=== PATIENT | female | born 1960 | race Caucasian/White ===

== ENCOUNTER 2017-11-29 06:39 | Emergency (ER) | payer BC ==
[2017-11-29 06:51] VITALS: BP 120/76; PULSE 106; BMI 24.1
[2017-11-29 06:52] VITALS: TEMP 97.6
--- NOTE | 2017-11-29 07:31 | PDOC ---
History of Present Illness - General Chief Complaint: Headache Stated Complaint: HEAD PRESSURE - History of Present Illness Initial Comments: Ms Galivn is a 57yo healthy F who presents with a dull headache. Headache started about 2 days ago, located occipitally, non-radiating, pressure like, about 4/10, relieved with ibuprofen. Patient was worried because the headache woke her up this morning. She was sick last week and continues to have sinus congestion and rhinorrhea and developed a subsequent occipital headache. The pain is worse when she leans forward. She denies head trauma, sharp headache, WHOML. She has had migraines before, but this headache is unlike a migraine. Denies hearing or vision abnormalities or other focal neurological symptoms. Past History - Past Medical History Allergies/Adverse Reactions: Allergies Allergy/AdvReac Type Severity Reaction Status Date / Time No Known Drug Allergies Allergy Verified 11/29/17 06:48 No Known Drug Intolerances Allergy Verified 11/29/17 06:48 Home Medications: Ambulatory Orders Prednisone 20 mg PO BID #10 tablet 04/15/14 - Surgical History Appendectomy: Yes (1979) - Immunization History Immunization Up to Date: Yes - Suicide/Smoking/Psychosocial Hx Smoking History: Never smoked Have you smoked in the past 12 months: No Information on smoking cessation initiated: No Hx Alcohol Use: No Drug/Substance Use Hx: No Substance Use Type: Alcohol Hx Substance Use Treatment: No *Physical Exam - Vital Signs Last Vital Signs Temp Pulse Resp BP Pulse Ox 97.6 F 106 H 20 120/76 99 11/29/17 06:51 11/29/17 06:49 11/29/17 06:49 11/29/17 06:49 11/29/17 06:49 - Physical Exam Comments: GEN: AAOx3, NAD, Lying comfortably HEENT: PERRLA, EOMi, Mild TTP in maxillary sinuses CV: S1, S2, RRR LUNG: CTABL ABD: Soft, NT, ND, normoactive BS MSK: NO edema, no erythema NEURO: CN 2-12 grossly intact MSK 5/5 in all extremities No sensation deficits No disdiadokinesia or gait disturbances Medical Decision Making - Medical Decision Making 57yo healthy F w/ headache, likely sinus headache due to association w/ sinus congestion and rhinorrhea. Other ddx include migraine, tension, or cluster headache but these are less likely. --Ibuprofen 600mg Will encourage to take Ibuprofen and if needed decongestant such as Sudafed (pt has no hx of HTN). Dispo home. Return if symptoms worsen. *DC/Admit/Observation/Transfer Diagnosis at time of Disposition: Sinus headache - Discharge Dispostion Disposition: HOME Condition at time of disposition: Stable - Referrals Referrals: Radha Funez MD [Primary Care Provider] - 14 days - Patient Instructions Printed Discharge Instructions: DI for Sinus Headache - Post Discharge Activity
--- NOTE | 2017-11-29 07:33 | PDOC ---
Attending Attestation - Resident Resident Name: Huseyin Archer - ED Attending Attestation I have performed the following: I have examined & evaluated the patient, The case was reviewed & discussed with the resident, I agree w/resident's findings & plan, Exceptions are as noted - HPI HPI: 11/29/17 07:32 57y F presenting with intermittent pressure like headache since yesterday - pt notes headache is worse in the posterior head as well as in the frontal sinuses - it resolves with ibuptofen, is approx 4/10 at is worse. There is no associated vision changes, neck stiffiness, n/v, fever/chills, numbness/tingling /weakness. Pt endoreses recent episode of URI/flu like sypmtoms including nasal congestion , sore throat and low grade fever. Pt is a repschool teacher with sick contacts. Pt has no other pmhx on exam pt is well appearing, in no distress, with mild sinus tenderness to percussion. No signs of nuchal rigidity. normal neuro exam suspect sinus congestion/tension headache no signs of dangerous headahe such as meningitis/encephalitis, sah/ich will dc with ibuprofen and decongestant and PMD fu return precautions were discussed
[2017-11-29] MEDS: IBUPROFEN 200 MG TABLET PO ONE ×2 (08:12→08:32)
[2017-11-29] MEDS ORDERED: IBUPROFEN 600 MG TABLET (FP) PO ONE ×2 (08:17→08:18)
== END 2017-11-29 08:45 | disposition home or self-care (01) ==
LOC: JER 06:39
DX: J34.89 Other specified disorders of nose and nasal sinuses (principal); R51 Headache
CPT/HCPCS: 99282-25

== ENCOUNTER 2019-05-11 06:09 | Day surgery (SDC) | payer BC ==
[2019-05-10 09:00] VITALS: BMI 23.8
[2019-05-11] MEDS ORDERED: oxyCODONE HCL 5 MG TABLET PO PRN ×2 (07:23)
[2019-05-11] MEDS ORDERED: ONDANSETRON 4 MG/2 ML VIAL IVPUSH PRN (07:23)
[2019-05-11] MEDS ORDERED: LACTATED RINGERS SOLUTION 1,000 ML IV SCH (07:30)
[2019-05-11] MEDS ORDERED: LIDOCAINE 1%-EPI 1:100,000 30 ML MDV IJ ONE (07:45)
[2019-05-11] MEDS ORDERED: BUPIVACAINE HCL/PF 0.5% (5MG/ML) 10 ML VIAL ONE (07:45)
[2019-05-11 07:49] LABS: EPI CELLS 0.8 /HPF (0-5/HPF); HYALINE CASTS 2 /lpf (0-8); PH,URINE 5.5 (5.0-8.0); URINE APPEARANCE CLEAR; URINE BILIRUBIN NEGATIVE (NEGATIVE); URINE COLOR YELLOW; URINE GLUCOSE (UA) NEGATIVE (NEGATIVE); URINE KETONE NEGATIVE (NEGATIVE); URINE LEUK ESTERASE TRACE (NEGATIVE); URINE NITRITE NEGATIVE (NEGATIVE); URINE PROTEIN NEGATIVE (NEGATIVE); URINE RBC 1 /hpf (0-4); URINE UROBILINOGEN 0.2 mg/dL (0.2-1.0); URINE WBC 2 /hpf (0-5)
[2019-05-11] MEDS ORDERED: ONDANSETRON 4 MG/2 ML VIAL ONE (08:01)
[2019-05-11] MEDS ORDERED: MIDAZOLAM HCL 2 MG/2 ML SINGLE DOSE VIAL ONE (08:01)
[2019-05-11] MEDS ORDERED: DEXAMETHASONE SOD PHOSPHATE 4 MG/1 ML VIAL ONE (08:01)
[2019-05-11] MEDS ORDERED: SUCCINYLCHOLINE CHLORIDE 200 MG/10 ML SYRINGE ONE (08:01)
[2019-05-11] MEDS ORDERED: PROPOFOL 20 ML ONE ×2 (08:01)
[2019-05-11] MEDS ORDERED: ceFAZolin SODIUM 1 GM VIAL ONE (08:01)
--- NOTE | 2019-05-11 08:03 | HP ---
Satellite [facility] - Chief Complaint Chief Complaint: left knee pain History Source: Patient - Past Medical History Allergies/Adverse Reactions: Allergies Allergy/AdvReac Type Severity Reaction Status Date / Time No Known Drug Allergies Allergy Verified 05/11/19 06:46 No Known Drug Intolerances Allergy Verified 05/11/19 06:46 - Current Medications Current Medications: Home Medications Medication Instructions Recorded NK [No Known Home Medication] 11/29/17 Satellite Physical Exam - Physical Examination Vital Signs: Vital Signs Period Temp Pulse Resp BP Sys/Anthony Pulse Ox Last 24 Hr 97.6 F-97.6 F 81-81 20-20 139-139/71-71 99 Extremities: Other (+ joint line tenderness) Satellite Impression/Plan - Impression/Plan Impression: internal derangement left knee Operative Procedure: arthroscpoy left knee Date to be Performed: 05/11/19
[2019-05-11] MEDS ORDERED: LIDOCAINE 1%/EPI 1:100000 (20 ML MULTI DOSE VIAL) IJ ONE ×2 (08:20→08:28)
[2019-05-11] MEDS ORDERED: BUPIVACAINE HCL/PF (5 MG/ML) 30 ML VIAL IJ ONE (08:29)
--- NOTE | 2019-05-11 08:42 | OP ---
Operative Note - Note: Operative Date: 05/11/19 [place] Pre-Operative Diagnosis: left knee internal derangement Operation: left knee arthroscopy with PMM, debridement chondroplasty trochlea Post-Operative Diagnosis: Same as Pre-op Surgeon: Ty Goncalves Anesthesia: General, Local Specimens Removed: shavings Estimated Blood Loss (mls): 5 Operative Report Dictated: Yes
[2019-05-11 10:09] VITALS: TEMP 97.6
--- NOTE | 2019-05-11 12:05 | OP ---
DATE OF OPERATION: 05/11/2019 PREOPERATIVE DIAGNOSIS: Internal derangement, left knee. POSTOPERATIVE DIAGNOSIS: Internal derangement, left knee. PROCEDURE: Arthroscopy, left knee, partial medial meniscectomy, and chondroplasty of the trochlea. SURGICAL ATTENDING: Ty Goncalves MD ANESTHESIA: General with LMA. CLOSURE: 4-0 nylon. COMPLICATIONS: None. CONDITION: To recovery room in stable condition. DESCRIPTION OF PROCEDURE: Patient was taken to the operating room on May 11, 2019. General anesthesia with LMA was administered by the anesthesiologist. Left lower extremity was prepped and draped in the usual sterile fashion. The medial and lateral infrapatellar portal sites were infiltrated with 1% Xylocaine with epinephrine. Both portals were then made with a 15-blade followed by a blunt trocar. The scope was placed in the lateral infrapatellar portal and up the suprapatellar pouch. The knee was then inflated with a cocktail of 10 mL of 1% Xylocaine, 10 mL of 0.5% Marcaine, and 20 mL of arthroscopic saline. After allowing the anesthetic to work in the knee, the procedure was performed. The undersurface of the patella was found to be intact. The trochlea had some grade 2-3 changes on the more medial aspect its entire length. Any loose articular cartilage was debrided using the shaver. The lateral part of the trochlea was intact. With valgus stress on the knee, the medial compartment was entered and medial meniscus was visualized, probed, and found to have a complex tear of its posterior horn. This was debrided back to smooth and stable meniscal tissue using meniscal biter and arthroscopic shaver. Medial femoral condyle was run and found to be intact as was the medial tibial plateau. At 90 degrees, the ACL was visualized, probed and found to be intact. In the figure four position, the lateral compartment was entered. Lateral meniscus was visualized, probed and found to be intact. The lateral femoral condyle was run and found to be intact as was the lateral tibial plateau. The knee was irrigated with copious amounts of irrigation. The portals were closed using 4-0 nylon. Prior to closure, 20 mL of 0.5% Marcaine was infused into the knee for postoperative analgesia. Sterile pressure dressing was placed over the knee. Patient was awakened from anesthesia and transferred to recovery room in stable condition. No complications. Estimated blood loss was negligible. Barbara [id number]
[2019-05-11 12:54] VITALS: BP 118/70; PULSE 85
--- NOTE | 2019-05-13 17:22 | PATH ---
Surgical Pathology Report Patient Name: AMOR LONG [facility]. Rec. #: [id number] /Age/Gender: 1960 (Age: 59) / F Account: [id number] Location: [facility] Taken: 05/11/2019 Received: 05/11/2019 Reported: 05/13/2019 Physicians: Ty Goncalves M.D. Specimen(s) Received LEFT KNEE SHAVINGS Clinical History Left knee shavings Final Diagnosis KNEE SHAVINGS, LEFT, ARTHROSCOPY: FRAGMENTS OF CARTILAGE, DENSE FIBROCONNECTIVE TISSUE, ADIPOSE TISSUE, AND SYNOVIUM. Electronically Signed Kenia Mckeon M.D. Gross Description Received in formalin, labeled "left knee shavings," is a 4.0 x 3.4 x 0.4 cm. aggregate of ortega-yellow soft tissue fragments. A service support representative portion is submitted in one cassette. /05/11/201905/11/2019
== END 2019-05-11 11:40 | disposition home or self-care (01) ==
LOC: JASU-SURG 06:09
PROVIDERS: ATTEND Orthopaedic Surgery
PROC: 0SBD4ZZ Excision of Left Knee Joint, Percutaneous Endoscopic Approach (ICD-10-PCS; principal; 2019-05-11 08:00)
DX: S83.232A Complex tear of medial meniscus, current injury, left knee, initial encounter (principal); X58.XXXA Exposure to other specified factors, initial encounter; Y93.9 Activity, unspecified; Y92.9 Unspecified place or not applicable; Y99.9 Unspecified external cause status
CPT/HCPCS: 81003; 88304-TC; 94760; 97116-GP

== ENCOUNTER 2021-03-05 17:29 | Emergency (ER) | payer BC ==
[2021-03-05 17:48] VITALS: BP 150/97; PULSE 91; TEMP 98.3; BMI 24.3
== END 2021-03-05 20:13 | disposition home or self-care (01) ==
LOC: FER 17:29
DX: M79.661 Pain in right lower leg (principal); M79.662 Pain in left lower leg
CPT/HCPCS: 93970-TC; 99284-25

== ENCOUNTER 2023-04-08 20:03 | Inpatient (IN) | payer BC ==
[2023-04-08 20:15] VITALS: BMI 21.6
[2023-04-08 21:10] LABS: BASO % 0.2 % (0-2.0); EOS % 0.2 % (0-4.5); HEMATOCRIT 35.2 % (32.4-45.2); HEMOGLOBIN 11.7 GM/dL (10.7-15.3); LYMPH % 7.5 % (8-40); MCH 28.5 pg (25.7-33.7); MCHC 33.2 g/dl (32.0-36.0); MEAN CELL VOLUME 85.8 fl (80-96); MEAN PLT VOLUME 6.9 fl (7.5-11.1); MONO % 6.3 % (3.8-10.2); NEUT % 85.8 % (42.8-82.8); PLATELET COUNT 279 10^3/uL (134-434); RBC 4.11 M/mm3 (3.60-5.2); RDW 12.7 % (11.6-15.6); WHITE BLOOD COUNT 13.4 K/mm3 (4.0-10.0)
[2023-04-08 21:25] LABS: INR 1.16 (0.83-1.09); PROTHROMBIN TIME (PATIENT) 13.4 SEC (9.7-13.0)
[2023-04-08 21:27] LABS: ACTIVATED PTT 27.9 SECONDS (25.2-36.5)
[2023-04-08 21:29] LABS: CHLORIDE 104 mmol/L (98-107); POTASSIUM 4.2 mmol/L (3.5-5.1); SODIUM 138 mmol/L (136-145)
[2023-04-08 21:31] LABS: ALBUMIN 3.7 g/dl (3.4-5.0); ANION GAP 7 MMOL/L (8-16); CALCIUM 9.1 mg/dL (8.5-10.1); CO2 26 mmol/L (21-32); GLUCOSE,RANDOM 129 mg/dL (74-106); MAGNESIUM 2.1 mg/dL (1.8-2.4)
[2023-04-08 21:32] LABS: BLOOD UREA NITROGEN 14.8 mg/dL (7-18)
[2023-04-08 21:34] LABS: SGPT/ALT 22 U/L (13-61)
[2023-04-08 21:35] LABS: CREATININE 0.8 mg/dL (0.55-1.3); SGOT/AST 21 U/L (15-37)
[2023-04-08 21:36] LABS: BILIRUBIN,TOTAL 0.4 mg/dL (0.2-1); TOT PROT 7.4 g/dl (6.4-8.2)
[2023-04-08 21:37] LABS: ALK PHOS 68 U/L (45-117)
[2023-04-08] MEDS ORDERED: SODIUM CHLORIDE 0.9% 1000 ML INFUS.BAG IV ONE ×2 (21:43→21:47)
[2023-04-08] MEDS ORDERED: ACETAMINOPHEN 1000 MG/100 ML BAG IVPB ONE (22:27)
[2023-04-08] MEDS ORDERED: ACETAMINOPHEN INJECTION 100 ML IVPB ONE (22:27)
[2023-04-09] MEDS: ALBUTEROL SO4 2.5/IPRATROPIUM 0.5 INH SOL 3 ML VIAL.NEB. NEB SCH ×4 (07:15→20:23)
[2023-04-09 07:24] LABS: HEMATOCRIT 31.3 % (32.4-45.2); HEMOGLOBIN 10.8 GM/dL (10.7-15.3); MCH 29.9 pg (25.7-33.7); MCHC 34.7 g/dl (32.0-36.0); MEAN CELL VOLUME 86.2 fl (80-96); MEAN PLT VOLUME 7.5 fl (7.5-11.1); PLATELET COUNT 226 10^3/uL (134-434); RBC 3.63 M/mm3 (3.60-5.2); RDW 12.9 % (11.6-15.6); WHITE BLOOD COUNT 12.8 K/mm3 (4.0-10.0)
[2023-04-09 07:45] LABS: POTASSIUM 4.1 mmol/L (3.5-5.1)
[2023-04-09 07:57] LABS: BLOOD UREA NITROGEN 7.8 mg/dL (7-18); CALCIUM 8.2 mg/dL (8.5-10.1)
[2023-04-09 08:00] LABS: CREATININE 0.7 mg/dL (0.55-1.3)
[2023-04-09] MEDS ORDERED: ALBUTEROL SO4 2.5/IPRATROPIUM 0.5 INH SOL 3 ML VIAL.NEB. NEB SCH (08:00)
[2023-04-09 08:02] LABS: BILIRUBIN,TOTAL 0.5 mg/dL (0.2-1)
[2023-04-09 08:06] LABS: ALBUMIN 2.8 g/dl (3.4-5.0)
[2023-04-09] MEDS: ENOXAPARIN NA (PORCINE) 40 MG/0.4 ML DISP.SYRIN SQ SCH ×2 (09:26→09:33)
[2023-04-09] MEDS ORDERED: AZITHROMYCIN IVPB 500 MG/250 ML BAG IVPB ONE (10:00)
[2023-04-09] MEDS ORDERED: AZITHROMYCIN IVPB 500 MG in DEXTROSE 5%-WATER - 250 ML IVPB ONE ×2 (10:00→15:55)
[2023-04-09] MEDS ORDERED: CEFTRIAXONE 1 GM in DEXTROSE 5%-WATER - 50 ML IVPB SCH (10:00)
[2023-04-09] MEDS ORDERED: predniSONE 20 MG TABLET (UD) PO SCH ×2 (10:00)
[2023-04-10 08:09] LABS: CALCIUM 8.9 mg/dL (8.5-10.1)
[2023-04-10 08:12] LABS: ALBUMIN 2.9 g/dl (3.4-5.0); BLOOD UREA NITROGEN 11.1 mg/dL (7-18); MAGNESIUM 2.2 mg/dL (1.8-2.4)
[2023-04-10 08:15] LABS: CREATININE 0.7 mg/dL (0.55-1.3)
[2023-04-10 08:16] LABS: TOT PROT 6.3 g/dl (6.4-8.2)
[2023-04-10 08:17] LABS: BILIRUBIN,TOTAL 0.3 mg/dL (0.2-1); PHOSPHOROUS 2.8 mg/dL (2.5-4.9)
[2023-04-10 08:19] LABS: BASO % 0.4 % (0-2.0); EOS % 0.8 % (0-4.5); HEMATOCRIT 32.1 % (32.4-45.2); HEMOGLOBIN 10.8 GM/dL (10.7-15.3); LYMPH % 16.7 % (8-40); MCH 29.2 pg (25.7-33.7); MCHC 33.8 g/dl (32.0-36.0); MEAN CELL VOLUME 86.3 fl (80-96); MONO % 7.3 % (3.8-10.2); NEUT % 74.8 % (42.8-82.8); PLATELET COUNT 295 10^3/uL (134-434); RBC 3.72 M/mm3 (3.60-5.2); RDW 12.7 % (11.6-15.6); WHITE BLOOD COUNT 11.1 K/mm3 (4.0-10.0)
[2023-04-10] MEDS: ALBUTEROL SO4 2.5/IPRATROPIUM 0.5 INH SOL 3 ML VIAL.NEB. NEB SCH (08:44)
[2023-04-10] MEDS ORDERED: CEFTRIAXONE 1 GM in DEXTROSE 5%-WATER - 50 ML IVPB SCH (10:00)
[2023-04-10] MEDS ORDERED: AZITHROMYCIN IVPB 250 MG in DEXTROSE 5%-WATER - 250 ML IVPB SCH (10:00)
[2023-04-10] MEDS ORDERED: ENOXAPARIN NA (PORCINE) 40 MG/0.4 ML DISP.SYRIN SQ SCH (10:00)
[2023-04-10 11:48] VITALS: BP 118/68; PULSE 88; RESP 18; TEMP 98.1
== END 2023-04-10 13:24 | disposition home or self-care (01) | DRG 194 ==
LOC: JER 20:03 → JERBED 04-09 00:07 → OBSVTOIN 04-09 00:54 → J4W 04-09 02:06 → J5S 04-09 14:17
PROVIDERS: ADMIT Internal Medicine; ATTEND Internal Medicine
DX: J18.9 Pneumonia, unspecified organism (principal); J98.11 Atelectasis; R07.89 Other chest pain; R00.0 Tachycardia, unspecified; M79.10 Myalgia, unspecified site
CPT/HCPCS: 0241U-QW; 36415; 71046-TC-FY; 80053; 82550; 83735; 84100; 84439; 84443; 84484; 85025; 85027; 85610; 85730; 87899; 93005; 93010; 93308; 94010; 94640; 99285-25; G0378

== ENCOUNTER 2023-04-12 09:44 | Inpatient (IN) | payer BC ==
[2023-04-12] MEDS ORDERED: ACETAMINOPHEN 1000 MG/100 ML BAG IVPB ONE (10:09)
[2023-04-12] MEDS ORDERED: SODIUM CHLORIDE 0.9% 500 ML INFUS.BAG IV ONE (10:09)
[2023-04-12] MEDS ORDERED: ACETAMINOPHEN INJECTION 100 ML IVPB ONE (10:13)
[2023-04-12 11:16] LABS: VENOUS BASE EXCESS 2.2 mmol/L (-2-2); VENOUS O2 SATURATION 77.7 % (70-80); VENOUS PCO2 47.1 mmHg (38-52); VENOUS PH 7.389 (7.310-7.410)
[2023-04-12 11:24] LABS: BASO % 0.9 % (0-2.0); EOS % 1.8 % (0-4.5); HEMATOCRIT 37.5 % (32.4-45.2); HEMOGLOBIN 12.7 GM/dL (10.7-15.3); LYMPH % 18.4 % (8-40); MCH 28.9 pg (25.7-33.7); MCHC 33.7 g/dl (32.0-36.0); MEAN CELL VOLUME 85.7 fl (80-96); MEAN PLT VOLUME 6.7 fl (7.5-11.1); MONO % 7.8 % (3.8-10.2); NEUT % 71.1 % (42.8-82.8); PLATELET COUNT 463 10^3/uL (134-434); RBC 4.38 M/mm3 (3.60-5.2); RDW 12.8 % (11.6-15.6); WHITE BLOOD COUNT 8.8 K/mm3 (4.0-10.0)
[2023-04-12 11:31] LABS: INR 1.1 (0.83-1.09); PROTHROMBIN TIME (PATIENT) 12.8 SEC (9.7-13.0)
[2023-04-12 11:33] LABS: ACTIVATED PTT 29.2 SECONDS (25.2-36.5)
[2023-04-12 11:43] LABS: POTASSIUM 4.8 mmol/L (3.5-5.1)
[2023-04-12 11:45] LABS: CALCIUM 9.6 mg/dL (8.5-10.1)
[2023-04-12 11:46] LABS: ALBUMIN 3.2 g/dl (3.4-5.0); BLOOD UREA NITROGEN 13.4 mg/dL (7-18); MAGNESIUM 2.2 mg/dL (1.8-2.4)
[2023-04-12 11:49] LABS: CREATININE 0.8 mg/dL (0.55-1.3)
[2023-04-12 11:50] LABS: BILIRUBIN,TOTAL 0.3 mg/dL (0.2-1); TOT PROT 7.3 g/dl (6.4-8.2)
[2023-04-12] MEDS ORDERED: VANCOMYCIN 1 GM in D5W (PRE-DOCKED) 1,000 MG/250 ML (RESTRICTED TO ID ONLY IVPB ONE (14:14)
[2023-04-12] MEDS ORDERED: PIPERACILLIN/TAZOB 4.5 GM 4.5 GM in DEXTROSE 5%-WATER 100 ML IVPB ONE (14:14)
[2023-04-12] MEDS ORDERED: PIPERACILLIN/TAZOB 4.5 GM 4.5 GM/100 ML BAG IVPB ONE (14:33)
[2023-04-12] MEDS ORDERED: VANCOMYCIN/WATER FOR INJ (PEG) 1,000 MG/200 ML BAG IVPB ONE (14:34)
[2023-04-12] MEDS ORDERED: IPRATROPIUM BR 0.02% 0.5 MG/2.5 ML VIAL.NEB. NEB PRN (16:55)
[2023-04-12] MEDS ORDERED: ACETAMINOPHEN 325 MG TABLET (FP) PO PRN (16:56)
[2023-04-12] MEDS: LACTOBACILLUS ACIDOPHILUS 1 TABLET PO SCH (17:30)
[2023-04-12] MEDS ORDERED: PIPERACILLIN/TAZOB 4.5 GM 4.5 GM in DEXTROSE 5%-WATER 100 ML IVPB SCH (18:00)
[2023-04-12] MEDS: PIPERACILLIN/TAZOB 4.5 GM 4.5 GM in DEXTROSE 5%-WATER 100 ML IVPB SCH (22:26)
[2023-04-13] MEDS: PIPERACILLIN/TAZOB 4.5 GM 4.5 GM in DEXTROSE 5%-WATER 100 ML IVPB SCH ×2 (06:02→14:55)
[2023-04-13] MEDS: LACTOBACILLUS ACIDOPHILUS 1 TABLET PO SCH (09:40)
[2023-04-13 10:59] LABS: BASO % 0.7 % (0-2.0); HEMATOCRIT 36.5 % (32.4-45.2); HEMOGLOBIN 12.6 GM/dL (10.7-15.3); MCH 29.5 pg (25.7-33.7); MCHC 34.4 g/dl (32.0-36.0); MEAN CELL VOLUME 85.7 fl (80-96); MEAN PLT VOLUME 6.4 fl (7.5-11.1); MONO % 6.2 % (3.8-10.2); NEUT % 72.1 % (42.8-82.8); PLATELET COUNT 464 10^3/uL (134-434); RBC 4.26 M/mm3 (3.60-5.2); RDW 12.4 % (11.6-15.6); WHITE BLOOD COUNT 9.9 K/mm3 (4.0-10.0)
[2023-04-13 11:09] LABS: POTASSIUM 4.1 mmol/L (3.5-5.1)
[2023-04-13 11:23] LABS: CALCIUM 9.1 mg/dL (8.5-10.1)
[2023-04-13 11:24] LABS: ALBUMIN 3.1 g/dl (3.4-5.0)
[2023-04-13 11:27] LABS: CREATININE 0.8 mg/dL (0.55-1.3)
[2023-04-13 11:28] LABS: BILIRUBIN,TOTAL 0.5 mg/dL (0.2-1)
[2023-04-13 11:29] LABS: TOT PROT 6.9 g/dl (6.4-8.2)
[2023-04-14] MEDS: PIPERACILLIN/TAZOB 4.5 GM 4.5 GM in DEXTROSE 5%-WATER 100 ML IVPB SCH ×2 (01:46→09:46)
[2023-04-14] MEDS: LACTOBACILLUS ACIDOPHILUS 1 TABLET PO SCH (09:44)
[2023-04-14 10:38] LABS: BASO % 0.7 % (0-2.0); EOS % 3.2 % (0-4.5); HEMATOCRIT 37.1 % (32.4-45.2); HEMOGLOBIN 12.7 GM/dL (10.7-15.3); LYMPH % 19.3 % (8-40); MCHC 34.1 g/dl (32.0-36.0); MEAN PLT VOLUME 6.1 fl (7.5-11.1); MONO % 6.7 % (3.8-10.2); NEUT % 70.1 % (42.8-82.8); PLATELET COUNT 478 10^3/uL (134-434); RBC 4.37 M/mm3 (3.60-5.2); RDW 12.9 % (11.6-15.6); WHITE BLOOD COUNT 8.8 K/mm3 (4.0-10.0)
[2023-04-14 11:01] LABS: POTASSIUM 4.8 mmol/L (3.5-5.1)
[2023-04-14 11:03] LABS: ALBUMIN 3.1 g/dl (3.4-5.0)
[2023-04-14 11:04] LABS: BLOOD UREA NITROGEN 15.5 mg/dL (7-18)
[2023-04-14 11:06] LABS: CREATININE 0.7 mg/dL (0.55-1.3)
[2023-04-14 11:08] LABS: BILIRUBIN,TOTAL 0.2 mg/dL (0.2-1); TOT PROT 6.9 g/dl (6.4-8.2)
[2023-04-14 15:31] VITALS: BP 104/79; PULSE 87; RESP 18; TEMP 97.9
[2023-04-14] MEDS ORDERED: AMOX TR/POT CLAV 875MG/125MG TABLETS (FP) PO SCH (17:30)
== END 2023-04-14 18:04 | disposition home or self-care (01) | DRG 195 ==
LOC: JER 09:44 → JERBED 14:14 → J5S 16:18
PROVIDERS: ADMIT Internal Medicine
DX: J18.9 Pneumonia, unspecified organism (principal); R07.89 Other chest pain; R91.8 Other nonspecific abnormal finding of lung field; I10 Essential (primary) hypertension; R00.0 Tachycardia, unspecified; E78.5 Hyperlipidemia, unspecified; K21.9 Gastro-esophageal reflux disease without esophagitis; J30.9 Allergic rhinitis, unspecified; K58.9 Irritable bowel syndrome, unspecified
CPT/HCPCS: 0241U-QW; 36415; 71045-TC-FY; 71046-TC-FY; 71275-TC; 80053; 82803; 83735; 84484; 85025; 85379; 85610; 85730; 87070; 87077; 87205; 93005; 93010; 99285-25; Q9967

== ENCOUNTER 2023-10-23 17:06 | Emergency (ER) | payer BC ==
[2023-10-23 17:15] VITALS: RESP 18; BMI 21.6
[2023-10-23] MEDS ORDERED: SODIUM CHLORIDE 0.9% 500 ML INFUS.BAG IV ONE (18:18)
[2023-10-23 19:07] LABS: BASO % 0.3 % (0-2.0); EOS % 0.3 % (0-4.5); HEMATOCRIT 38.9 % (32.4-45.2); HEMOGLOBIN 12.6 GM/dL (10.7-15.3); LYMPH % 7.8 % (8-40); MCH 28.3 pg (25.7-33.7); MCHC 32.3 g/dl (32.0-36.0); MEAN CELL VOLUME 87.7 fl (80-96); MEAN PLT VOLUME 6.8 fl (7.5-11.1); MONO % 5.7 % (3.8-10.2); NEUT % 85.9 % (42.8-82.8); PLATELET COUNT 347 10^3/uL (134-434); RBC 4.43 M/mm3 (3.60-5.2); RDW 12.7 % (11.6-15.6); WHITE BLOOD COUNT 13.9 K/mm3 (4.0-10.0)
[2023-10-23 19:25] LABS: ACTIVATED PTT 28.8 SECONDS (25.2-36.5); INR 1.05 (0.83-1.09); PROTHROMBIN TIME (PATIENT) 12.2 SEC (9.7-13.0)
[2023-10-23 19:27] LABS: POTASSIUM 4.5 mmol/L (3.5-5.1)
[2023-10-23 19:29] LABS: CALCIUM 8.4 mg/dL (8.5-10.1)
[2023-10-23 19:30] LABS: ALBUMIN 3.7 g/dl (3.4-5.0); BLOOD UREA NITROGEN 11.8 mg/dL (7-18)
[2023-10-23 19:33] LABS: CREATININE 0.8 mg/dL (0.55-1.3)
[2023-10-23 19:34] LABS: BILIRUBIN,TOTAL 0.5 mg/dL (0.2-1); TOT PROT 7.7 g/dl (6.4-8.2)
[2023-10-23] MEDS ORDERED: ACETAMINOPHEN INJECTION 100 ML IVPB ONE (19:59)
[2023-10-23] MEDS ORDERED: ACETAMINOPHEN 1000 MG/100 ML BAG IVPB ONE (20:24)
[2023-10-23 23:28] VITALS: BP 132/72; PULSE 98; TEMP 98
== END 2023-10-23 23:31 | disposition home or self-care (01) ==
LOC: JER 17:06
PROC: 3E033NZ Introduction of Analgesics, Hypnotics, Sedatives into Peripheral Vein, Percutaneous Approach (ICD-10-PCS; principal; 2023-10-23)
DX: R06.02 Shortness of breath (principal); R05.9 Cough, unspecified; R09.3 Abnormal sputum; R09.81 Nasal congestion; M79.10 Myalgia, unspecified site; R07.9 Chest pain, unspecified; R00.0 Tachycardia, unspecified; J18.9 Pneumonia, unspecified organism; Z20.822 Contact with and (suspected) exposure to COVID-19
CPT/HCPCS: 0241U-QW; 36415; 71046-TC-FY; 71275-TC; 80053; 84484; 85025; 85379; 85610; 85730; 93005; 93010; 99285-25; Q9967

== ENCOUNTER 2023-11-04 08:28 | Emergency (ER) | payer BC ==
[2023-11-04 08:34] VITALS: BMI 24.7
[2023-11-04 10:40] LABS: PROTHROMBIN TIME (PATIENT) 11.6 SEC (9.7-13.0)
[2023-11-04 10:42] LABS: ACTIVATED PTT 27.7 SECONDS (25.2-36.5)
[2023-11-04 10:45] LABS: POTASSIUM 4.3 mmol/L (3.5-5.1)
[2023-11-04 10:46] LABS: EOS % 1.2 % (0-4.5); HEMATOCRIT 37.3 % (32.4-45.2); HEMOGLOBIN 12.5 GM/dL (10.7-15.3); LYMPH % 12.3 % (8-40); MCH 29.5 pg (25.7-33.7); MCHC 33.5 g/dl (32.0-36.0); MEAN PLT VOLUME 6.7 fl (7.5-11.1); MONO % 4.4 % (3.8-10.2); NEUT % 81.1 % (42.8-82.8); PLATELET COUNT 467 10^3/uL (134-434); RBC 4.24 M/mm3 (3.60-5.2); RDW 13.1 % (11.6-15.6); WHITE BLOOD COUNT 9.8 K/mm3 (4.0-10.0)
[2023-11-04 10:48] LABS: ALBUMIN 3.5 g/dl (3.4-5.0); BLOOD UREA NITROGEN 17.5 mg/dL (7-18); CALCIUM 8.7 mg/dL (8.5-10.1)
[2023-11-04 10:51] LABS: CREATININE 0.7 mg/dL (0.55-1.3)
[2023-11-04 10:52] LABS: BILIRUBIN,TOTAL 0.2 mg/dL (0.2-1); TOT PROT 7.3 g/dl (6.4-8.2)
[2023-11-04] MEDS ORDERED: KETOROLAC TROMETHAMINE 30 MG/1 ML VIAL IVPUSH ONE (10:53)
[2023-11-04] MEDS ORDERED: KETOROLAC TROMETHAMINE 30 MG/1 ML VIAL ONE (11:05)
[2023-11-04] MEDS ORDERED: DEXAMETHASONE SOD PHOSPHATE 10 MG/1 ML VIAL ONE ×2 (12:27→13:12)
[2023-11-04 12:31] LABS: N-TERMINAL BNP 37.6 pg/ml (5-125)
[2023-11-04] MEDS: DEXAMETHASONE SOD PHOSPHATE 10 MG/1 ML VIAL IM ONE ×2 (13:26→13:32)
[2023-11-04] MEDS ORDERED: DEXAMETHASONE SOD PHOSPHATE 10 MG/1 ML VIAL IVPUSH ONE (13:33)
[2023-11-04 13:49] VITALS: BP 132/76; PULSE 86; RESP 16; TEMP 97.6
== END 2023-11-04 13:49 | disposition home or self-care (01) ==
LOC: JERFT 08:28
PROC: 3E0333Z Introduction of Anti-inflammatory into Peripheral Vein, Percutaneous Approach (ICD-10-PCS; principal; 2023-11-04)
PROC: 3E033GC Introduction of Other Therapeutic Substance into Peripheral Vein, Percutaneous Approach (ICD-10-PCS; 2023-11-04)
DX: R06.02 Shortness of breath (principal); R07.9 Chest pain, unspecified; R09.1 Pleurisy
CPT/HCPCS: 36415; 71046-TC-FY; 80053; 83880; 84484; 85025; 85379; 85610; 85730; 99284-25; J1100

== ENCOUNTER 2024-10-08 15:01 | Emergency (ER) | payer BC ==
[2024-10-08 15:14] VITALS: BP 166/91; PULSE 87; RESP 16; TEMP 97.6; BMI 21.6
== END 2024-10-08 18:56 | disposition home or self-care (01) ==
LOC: JER 15:01
DX: J32.3 Chronic sphenoidal sinusitis (principal); R51.9 Headache, unspecified
CPT/HCPCS: 70450-TC; 70486-TC; 99284-25